=== PATIENT | female | born 1975 | race Caucasian/White ===

== ENCOUNTER → 2018-09-07 17:30 | Outpatient (CLI) | payer BC, SELFPAY ==
--- NOTE | 2018-09-07 17:34 | BI_ITS ---
MAMMOGRAPHY - BILATERAL SCREENING REASON FOR EXAM: Female, 42 years old. Routine annual screening examination. PERTINENT HISTORY: Grandmother with breast cancer. Aunt with breast cancer. TECHNIQUE: Digital bilateral breast angie (3D mammographic acquisition) in the CC and MLO projections. 2-D mediolateral oblique (MLO) and craniocaudad (CC) views of both breasts were obtained. CAD: Full Field Digital Mammography with Computer Added Detection was performed. COMPARISON: Comparison is made with prior study dated August 25, 2017 and October 06, 2013. FINDINGS: Breast Composition: The breasts are heterogeneously dense, which may obscure small masses. There are no dominant masses or suspicious calcifications. No other significant abnormalities are identified. There has been no significant change since the prior study. BI/SCREENING MAMM (CAD), BILAT IMPRESSION: Stable bilateral screening mammogram. Yearly follow-up mammogram recommended. (A) ASSESSMENT CATEGORY: BIRADS Category 1: Negative. A letter regarding these results will be sent to the patient by the facility within 30 days. Approximately 10% of breast cancers are not detected by mammography. A normal mammogram should not delay biopsy of a clinically suspicious abnormality. [id number] Electronically Signed: Jamil Swift MD at 10:46 EDT Tel [phone], Service support ,
== END ==
PROVIDERS: Family Provider Nurse Practitioner; PCP Nurse Practitioner; Visit Provider Nurse Practitioner
DX: Z12.31 Encounter for screening mammogram for malignant neoplasm of breast (principal)
CPT/HCPCS: 77063; 77067

== ENCOUNTER → 2019-09-10 15:19 | Outpatient (CLI) | payer BC, SELFPAY ==
--- NOTE | 2019-09-10 15:22 | BI_ITS ---
MAMMOGRAPHY - BILATERAL SCREENING REASON FOR EXAM: Female, 43 years old. Routine annual screening examination. PERTINENT HISTORY: Aunt with breast cancer. History of prior bilateral breast reduction surgery. TECHNIQUE: Digital bilateral breast raiza (3D mammographic acquisition) in the CC and MLO projections. 2-D mediolateral oblique (MLO) and craniocaudad (CC) views of both breasts were obtained. CAD: Full Field Digital Mammography with Computer Added Detection was performed. COMPARISON: Comparison is made with prior study September 07, 2018 and August 25, 2017. FINDINGS: Breast Composition: The breasts are heterogeneously dense, which may obscure small masses. There are no dominant masses or suspicious calcifications. Since prior study, the patient underwent bilateral breast reduction surgery with postoperative changes. No other significant abnormalities are identified. BI/SCREEN MAMM (CAD) W/RAIZA BILAT IMPRESSION: Status post bilateral post reduction breast surgery with postoperative changes. Yearly follow-up mammogram recommended. (A) ASSESSMENT CATEGORY: BIRADS Category 2: Benign. A letter regarding these results will be sent to the patient by the facility within 30 days. Approximately 10% of breast cancers are not detected by mammography. A normal mammogram should not delay biopsy of a clinically suspicious abnormality. [id number] Electronically Signed: Jamil Swift, at 10:12 EDT , Service support ,
== END ==
PROVIDERS: Family Provider Nurse Practitioner; PCP Nurse Practitioner; Referring Provider Nurse Practitioner; Visit Provider Nurse Practitioner
DX: Z12.31 Encounter for screening mammogram for malignant neoplasm of breast (principal); Z80.3 Family history of malignant neoplasm of breast
CPT/HCPCS: 77063; 77067

== ENCOUNTER → 2020-09-18 16:22 | Outpatient (CLI) | payer BC, SELFPAY ==
--- NOTE | 2020-09-18 16:25 | BI_ITS ---
MAMMOGRAPHY - BILATERAL SCREENING REASON FOR EXAM: Female, 44 years old. Routine annual screening examination. PERTINENT HISTORY: Grandmother with breast cancer. Aunts with breast cancer. Remote bilateral breast reduction surgery. TECHNIQUE: Digital bilateral breast raiza (3D mammographic acquisition) in the CC and MLO projections. 2-D mediolateral oblique (MLO) and craniocaudad (CC) views of both breasts were obtained. CAD: Full Field Digital Mammography with Computer Added Detection was performed. COMPARISON: Comparison is made with prior study dated 09/10/2019 and 09/07/2018. FINDINGS: Breast Composition: The breasts are heterogeneously dense, which may obscure small masses. Focal area of architectural distortion in the deep upper lateral portion of the right breast. Correlation with ultrasound is recommended. No other significant abnormalities are identified. BI/SCREEN MAMM (CAD) W/RAIZA BILAT IMPRESSION: Focal area of architectural distortion in the deep upper lateral portion of the right breast. Correlation with ultrasound is recommended. ASSESSMENT CATEGORY: BIRADS Category 0: Incomplete. Need additional imaging evaluation. A letter regarding these results will be sent to the patient by the facility within 30 days. Approximately 10% of breast cancers are not detected by mammography. A normal mammogram should not delay biopsy of a clinically suspicious abnormality. [id number] Electronically Signed: Jamil Swift, at 8:54 EDT , Service support ,
== END ==
PROVIDERS: PCP Nurse Practitioner; Referring Provider Nurse Practitioner; Visit Provider Nurse Practitioner
DX: Z12.31 Encounter for screening mammogram for malignant neoplasm of breast (principal); Z80.3 Family history of malignant neoplasm of breast
CPT/HCPCS: 77063; 77067

== ENCOUNTER → 2020-09-23 11:04 | Outpatient (CLI) | payer BC, SELFPAY ==
--- NOTE | 2020-09-23 11:05 | US_ITS ---
STUDY: ULTRASOUND BREAST - RIGHT REASON FOR EXAM: Female, 44 years old. Abnormal screening mammogram. TECHNIQUE: Axial and longitudinal images of the RIGHT breast were performed with a high resolution ultrasound transducer. # OF IMAGES: 72 COMPARISON: Comparison is made with prior mammogram dated 09/18/2020. FINDINGS: RIGHT Breast: There is a 1.7 cm x 1.3 cm x 0.8 cm benign-appearing lymph node in the right axilla. There is a 4 mm x 2 mm x 2 mm cyst at the 8 o''clock position the breast is 7 cm from the nipple. There is a 4 mm x 5 mm x 5 mm hypoechoic nodule with a cystic area within it measuring 4 mm x 5 mm by 5 mm. Adjacent to this nodule there is an area of shadowing measuring 8.7 mm x 4.5 mm. This may represent postoperative scarring. A follow-up sonogram in 4 months is recommended. US/Breast Limited Unilateral IMPRESSION: Possible focal area of scarring at the surgical site as described. A four-month follow-up examination is suggested. ASSESSMENT CATEGORY: BIRADS Category 3: Probably Benign - Short-Interval Follow-up Suggested. A letter regarding these results will be sent to the patient by the facility within 30 days. Electronically Signed: Jamil Swift, at 9:22 EST , Service support ,
== END ==
PROVIDERS: PCP Nurse Practitioner; Referring Provider Nurse Practitioner; Visit Provider Nurse Practitioner
DX: R92.8 Other abnormal and inconclusive findings on diagnostic imaging of breast (principal)
CPT/HCPCS: 76642

== ENCOUNTER → 2021-01-27 14:22 | Outpatient (CLI) | payer BC, OTHER, SELFPAY ==
--- NOTE | 2021-01-27 14:24 | US_ITS ---
STUDY: ULTRASOUND BREAST - RIGHT REASON FOR EXAM: Female, 45 years old. Right breast mass TECHNIQUE: Axial and longitudinal images of the RIGHT breast were performed with a high resolution ultrasound transducer. # OF IMAGES: 23 COMPARISON: 09/23/2020. FINDINGS: RIGHT Breast: There is a stable 1.7 cm x 1.3 cm x 0.9 cm benign-appearing lymph node in the right axilla. There is a stable 4 mm x 3 mm x 2 mm cyst at the 8 o''''clock position the breast is 7 cm from the nipple. There is a stable 4 mm x 5 mm x 5 mm hypoechoic nodule with a cystic area within. There is a hypoechoic shadowing lesion measuring now measuring approximately 1.3 x 1.3 x 0.7 cm it measured previously 1 x 1 x 0.6 cm this may have increased in size since previous study. US/Breast Limited Unilateral IMPRESSION: There is a hypoechoic shadowing lesion measuring now measuring approximately 1.3 x 1.3 x 0.7 cm it measured previously 1 x 1 x 0.6 cm this may have increased in size since previous study. A neoplastic process cannot be excluded. ASSESSMENT CATEGORY: BIRADS Category 4: Suspicious - Biopsy Should Be Considered. A letter regarding these results will be sent to the patient by the facility within 30 days. Electronically Signed: Celina Oconnor MD at 14:00 EST Tel , Service support ,
--- NOTE | 2021-01-27 14:24 | US_ITS ---
STUDY: THYROID ULTRASOUND REASON FOR EXAM: Female, 45 years old. Thyromegaly. TECHNIQUE: Ultrasound evaluation of the thyroid was performed with real-time and static hale-scale imaging. COMPARISON: Thyroid ultrasound, 08/25/2012. FINDINGS: RIGHT LOBE: The right lobe of the thyroid gland measures 5.7 x 2.6 x 1.0 cm. There is a homogeneous echotexture. In the upper lobe and there is a 0.7 x 0.8 x 0.4 cm anechoic structure consistent with a cyst. In the posterior midpole there is a 0.4 x 0.3 x 0.3 cm cyst. Anteriorly, in the mid pole, there is a 0.4 x 0.2 x 0.3 cm cyst with small internal echogenic focus. In the lower pole there is a 0.3 x 0.3 x 0.3 cm cyst with small internal echogenic focus. Normal vascularity on DOPPLER imaging. LEFT LOBE: The left lobe of the thyroid gland measures 5.7 x 1.9 x 1.4 cm. There is a homogeneous echotexture. The upper pole there is a 0.3 x 0.4 x 0.6 cm cyst. Also in the upper pole there is a 0.3 x 0.2 x 0.3 cm cyst. Internal vascularity on DOPPLER imaging ISTHMUS: The isthmus measures 0.4 . The regional lymph nodes are normal. US/Thyroid IMPRESSION: Prominent thyroid with bilateral cysts. The right cysts appear essentially unchanged. The left saphenous were not previously noted. These require no further follow-up. Electronically Signed: Javier Barksdale DO at 16:01 EST Tel [phone], Service support ,
== END ==
PROVIDERS: PCP Nurse Practitioner; Referring Provider Nurse Practitioner; Visit Provider Nurse Practitioner
DX: N60.01 Solitary cyst of right breast (principal); E04.9 Nontoxic goiter, unspecified
CPT/HCPCS: 76536; 76642

== ENCOUNTER → 2021-02-18 08:15 | Outpatient (CLI) | payer BC, OTHER, SELFPAY ==
--- NOTE | 2021-02-18 08:19 | US_ITS ---
ULTRASOUND GUIDED CORE BIOPSY REASON FOR EXAM: Female, 45 years old. ABN US PERTINENT HISTORY: Suspicious nodule in the right breast. COMPARISON: Comparison is made with prior sonogram dated 01/27/2021. TECHNIQUE: (All elements of maximal sterile barrier technique followed, including US elements as applicable) Under sonographic guidance, the surgeon performed core biopsies of the 3 mm x 4 mm x 5 mm hypoechoic solid nodule at the 10 o''clock position of the breast. US/US Breast Biopsy 1st Lesion IMPRESSION: Ultrasound guided core biopsy of a mass in the RIGHT breast at the 10 o''clock position of the breast without complication. Electronically Signed: Jamil Swift MD at 9:43 EDT , Service support ,
--- NOTE | 2021-02-18 08:55 | BRBX_PTH ---
PATIENT: LISA FERRELL LOC: [facility]#:[id number] AGE/SX: 49/F ROOM: RE02/18/[address]: Dr. Mary Kay Leach MD : 1975 BED: DIS: SPEC #: [id number] RECD: 02/18/21 09:42 STATUS: BRIANNA RELinda #: [id number] BRYCE: 02/18/21 08:[address]: Mary Kay Leach DEPT: SURGICAL PATHOLOGY RECD BY: Ofe Dickey ENTERED: 02/18/21 12:11 SP TYPE: BREAST BX OTHR DR: JACQUE Martinez Tissues: Breast, NOS Procedures: Surgery Specimen Level IV HEADER OPERATION: Ultrasound-guided right breast biopsy PRE-OP DIAGNOSIS: Right breast mass TISSUE SUBMITTED: Right breast mass ISCHEMIC TIME: 30 seconds FIXATION TIME: 10.5 hours MICROSCOPIC DIAGNOSIS Right breast mass, ultrasound-guided core biopsy: Intraductal hyperplasia without atypia. Focal dense fibrosis. Negative for malignancy. See comment. DARRION:yessenia 02/19/2021 COMMENT Correlation with clinical, radiologic findings and appropriate follow up are necessary. MICROSCOPIC DESCRIPTION Slides are reviewed. GROSS DESCRIPTION Received in fixative is one container labeled with the patient's name and designated right breast. The specimen consists of multiple irregular and elongated fragments of light mackenzie-yellow soft tissue that in aggregate measure 1.2 x 1 x 0.1 cm. The specimen is totally submitted in one cassette. / AM:yessenia 02/18/21 TC:5 CPT: 08152
--- NOTE | 2021-02-18 12:10 | PCM.OPRPT ---
Report of Operation Date of Procedure: 02/18/21 Pre-Operative Diagnosis: abnormal lesion seen on right breast ultrasound Post-Operative Diagnosis: same Surgery/Procedure Performed:: US guided needle core right breast biopsy Description of Surgical Findings:: abnormal lesion seen on right breast US in 10:00 position Type of Anesthesia:: Local - 1% xylocaine Specimen's removed: right breast tissue Estimated Blood Loss (mL): minimal Description of Procedure: After informed consent was given, the patient was brought to the ultrasound suite, and placed in the supine position. Appropriate time out protocol was followed. Ultrasound was used for real time imaging. Using the ultrasound transducer, the suspicious lesion was localized and then marked with a marking pen on the patient?s breast. The skin at where the biopsy stylus would be entering into the patient?s breast was then cleansed with alcohol and the skin and subcutaneous tissues at the biopsy site were infiltrated with 1% xylocaine. A small skin incision was made with an 11 blade scalpel medial to the lesion. Holding the transducer in my left hand, I guided the biopsy stylus to just beneath the lesion under direct ultrasound guidance. The biopsy trough was then opened and noted under ultrasound guidance, such that it was ensured that the lesion was able to be biopsied. Several core samples of breast tissue were then obtained and this was visualized under ultrasound guidance. A marker clip was then placed into the patient?s breast at the biopsy site and this was visualized under ultrasound guidance. Hemostasis was achieved using pressure. The skin incision was then reapproximated using steristrips and a sterile dressing was applied. The patient tolerated the procedure well. She was discharged from the radiology suite in stable condition. - Complications none noted
== END ==
PROVIDERS: PCP Nurse Practitioner; Referring Provider Surgery; Visit Provider Surgery
DX: N63.10 Unspecified lump in the right breast, unspecified quadrant (principal); N62 Hypertrophy of breast; N60.31 Fibrosclerosis of right breast
CPT/HCPCS: 19083; 88305

== ENCOUNTER → 2021-10-05 16:21 | Outpatient (CLI) | payer BC, OTHER, SELFPAY ==
--- NOTE | 2021-10-05 16:23 | BI_ITS ---
MAMMOGRAPHY - BILATERAL SCREENING REASON FOR EXAM: Female, 45 years old. Routine annual screening examination. PERTINENT HISTORY: Grandmother with breast cancer. History of prior bilateral breast reduction surgery. Prior right ultrasound-guided breast biopsy. Aunts with breast cancer. TECHNIQUE: Digital bilateral breast raiza (3D mammographic acquisition) in the CC and MLO projections. 2-D mediolateral oblique (MLO) and craniocaudad (CC) views of both breasts were obtained. CAD: Full Field Digital Mammography with Computer Added Detection was performed. COMPARISON: Comparison is made with prior study dated 09/18/2020 and 09/10/2019. FINDINGS: Breast Composition: The breasts are heterogeneously dense, which may obscure small masses. There are no dominant masses or suspicious calcifications. A tissue clip marker is now seen in the upper lateral aspect of the right breast. No other significant abnormalities are identified. BI/SCRN MAMM (CAD)W/RAIZA BILAT IMPRESSION: Stable bilateral screening mammogram. Yearly follow-up mammogram recommended. (A) ASSESSMENT CATEGORY: BIRADS Category 2: Benign. A letter regarding these results will be sent to the patient by the facility within 30 days. Approximately 10% of breast cancers are not detected by mammography. A normal mammogram should not delay biopsy of a clinically suspicious abnormality. [id number] Electronically Signed: Jamil Swift MD at 8:56 EST , Service support ,
== END ==
PROVIDERS: PCP Nurse Practitioner; Referring Provider Nurse Practitioner; Visit Provider Nurse Practitioner
DX: Z12.31 Encounter for screening mammogram for malignant neoplasm of breast (principal); Z80.3 Family history of malignant neoplasm of breast
CPT/HCPCS: 77063; 77067

== ENCOUNTER → 2022-11-16 | Outpatient (CLI) | payer BC, SELFPAY ==
--- NOTE | 2022-11-16 12:30 | BI_ITS ---
MAMMOGRAPHY - BILATERAL SCREENING REASON FOR EXAM: Female, 46 years old. Routine annual screening examination. PERTINENT HISTORY: Grandmother with breast cancer. Aunt with breast cancer. Prior bilateral breast reduction surgery. Prior right ultrasound-guided breast biopsy in January 2021. TECHNIQUE: Digital bilateral breast angie (3D mammographic acquisition) in the CC and MLO projections. 2-D mediolateral oblique (MLO) and craniocaudad (CC) views of both breasts were obtained. CAD: Full Field Digital Mammography with Computer Added Detection was performed. COMPARISON: Mammogram from 10/05/2021, 09/18/2020. FINDINGS: Breast Composition: The breasts are heterogeneously dense, which may obscure small masses. There are no dominant masses or suspicious calcifications. Stable biopsy marker in the right upper outer breast. Stable areas of architectural distortion likely associated with prior bilateral breast reduction surgery. No other significant abnormalities are identified. There has been no significant change since the prior study. BI/SCREENING MAMM (CAD), BILAT IMPRESSION: Stable bilateral screening mammogram. Yearly follow-up mammogram recommended. (A) ASSESSMENT CATEGORY: BIRADS Category 2: Benign. A letter regarding these results will be sent to the patient by the facility within 30 days. Approximately 10% of breast cancers are not detected by mammography. A normal mammogram should not delay biopsy of a clinically suspicious abnormality. Electronically Signed: Randy Nixon, at 11:01 EST ,
== END | disposition home or self-care (01) ==
LOC: OPBI 12:25
PROVIDERS: PCP Nurse Practitioner Family; Visit Provider Nurse Practitioner Family
DX: Z12.31 Encounter for screening mammogram for malignant neoplasm of breast (principal); Z80.3 Family history of malignant neoplasm of breast
CPT/HCPCS: 77067

== ENCOUNTER → 2024-10-24 | Outpatient (CLI) | payer BC, SELFPAY ==
--- NOTE | 2024-10-24 14:40 | BI_ITS ---
MAMMOGRAPHY - BILATERAL SCREENING REASON FOR EXAM: Female, 48 years old. Routine annual screening examination. PERTINENT HISTORY: Grandmother with breast cancer. Aunts with breast cancer. History of prior bilateral breast reduction and right ultrasound-guided breast biopsy. TECHNIQUE: Digital bilateral breast raiza (3D mammographic acquisition) in the CC and MLO projections. 2-D mediolateral oblique (MLO) and craniocaudad (CC) views of both breasts were obtained. CAD: Full Field Digital Mammography with Computer Added Detection was performed. COMPARISON: Comparison is made with prior study dated November 16, 2022 and October 05, 2021. FINDINGS: Breast Composition: The breasts are heterogeneously dense, which may obscure small masses. There are no dominant masses or suspicious calcifications. A tissue clip marker is seen in the upper outer quadrant of the No other significant abnormalities are identified. There has been no significant change since the prior study. BI/SCRN MAMM (CAD)W/RAIZA BILAT IMPRESSION: Stable bilateral screening mammogram. Yearly follow-up mammogram recommended. (A) ASSESSMENT CATEGORY: BIRADS Category 2: Benign. A letter regarding these results will be sent to the patient by the facility within 30 days. Approximately 10% of breast cancers are not detected by mammography. A normal mammogram should not delay biopsy of a clinically suspicious abnormality. [id number] Electronically Signed: Jamil Swift MD at 15:23 EST ,
== END | disposition home or self-care (01) ==
PROVIDERS: PCP Nurse Practitioner Family; Referring Provider Nurse Practitioner Family; Visit Provider Nurse Practitioner Family
DX: Z12.31 Encounter for screening mammogram for malignant neoplasm of breast (principal); Z80.3 Family history of malignant neoplasm of breast
CPT/HCPCS: 77063; 77067